=== PATIENT | male | born 1965 | race Two or more races ===

== ENCOUNTER 2020-09-08 11:46 | Outpatient (CLI) | payer OTHER | END 2020-09-08 12:05 | disposition home or self-care (01) | LOC: RAD 11:46 | PROVIDERS: ATTEND Orthopaedic Surgery Adult Reconstructive Orthopaedic Surgery | DX: M17.0 Bilateral primary osteoarthritis of knee (principal); M16.0 Bilateral primary osteoarthritis of hip ==